=== PATIENT | male | born 1975 | race Caucasian/White ===

== ENCOUNTER 2017-04-04 12:14 | Emergency (ER) | payer BC ==
[~2017-04-04] VITALS: Ht 175.3 cm; Wt 76.5 kg
[2017-04-04 12:36] VITALS: Ht 175.3 cm; Wt 76.5 kg
[2017-04-04 13:44] LABS: BASOPHILS % (AUTO) 0.2 % (0-2); EOSINOPHILS # (AUTO) 0.2 T/MM3 (0-0.5); EOSINOPHILS % (AUTO) 1.6 % (0-4); HGB - HEMOGLOBIN 15.1 GM/DL (13.5-17.5); IMMATURE GRANULOCYTE # (AUTO) 0.03 T/MM3 (0.00-0.03); IMMATURE GRANULOCYTE % (AUTO) 0.2 % (0.0-0.5); LYMPHOCYTES # (AUTO) 3.1 T/MM3 (1-4.8); LYMPHOCYTES % (AUTO) 25.3 % (23-45); MEAN CORPUSCULAR HGB 28.8 UUG (26-34); MEAN CORPUSCULAR HGB CONC(MCHC 33.6 GM/DL (31-37); MEAN CORPUSCULAR VOLUME 85.7 UM3 (80-100); MEAN PLATELET VOLUME 11.6 UM3 (9.4-12.4); MONOCYTES # (AUTO) 1.1 T/MM3 (0-0.8); MONOCYTES % (AUTO) 8.8 % (0-9.0); NEUTROPHILS #(AUTO)-ABSOLUTE 7.8 T/MM3 (1.8-7.7); NEUTROPHILS % (AUTO) 63.9 % (33-66); RED BLOOD COUNT 5.25 M/MM3 (4.50-5.90); WBC - WHITE BLOOD COUNT 12.2 T/MM3 (4.5-11.0)
[2017-04-04] MEDS ORDERED: ACET-62 PO (13:49)
[2017-04-04] MEDS ORDERED: IBUP-1724 PO (13:49)
[2017-04-04] MEDS: NITROGLYCERIN 0.4 MG SUBLINGUAL TABLET SL PRN ×3 (13:57→14:14)
--- NOTE | 2017-04-04 13:57 | DI ---
Indication: ITS.REASON: jaw pain, arm pain PROCEDURE: CHEST 1 VIEW: Encounter: Initial Comparison: None FINDINGS: The lungs are clear. There is no abnormal airspace opacity, pleural effusion or pneumothorax identified. The heart size, pulmonary vasculature and mediastinum are within normal limits. No significant skeletal abnormality is seen. IMPRESSION: No acute cardiopulmonary abnormality. .
[2017-04-04 13:59] LABS: ANION GAP 14 MEQ/L (5-15); BUN/CREATININE RATIO 24 RATIO (6-26); CALCIUM 9.1 MG/DL (8.4-10.2); CHLORIDE 105 MEQ/L (98-107); CO2 - CARBON DIOXIDE 26 MEQ/L (22-30); CREATININE 0.8 MG/DL (0.8-1.5); GLOMERULAR FILTRATION RATE 107; GLUCOSE 102 MG/DL (75-110); POTASSIUM 4.1 MEQ/L (3.6-5); SODIUM 145 MEQ/L (134-144)
[2017-04-04] MEDS ORDERED: ASPIRIN 81 MG CHEWABLE TABLET PO ONE (14:15)
--- NOTE | 2017-04-04 14:33 | ERPDOC ---
Departure Disposition Decision Date: April 04, 2017 Disposition Decision Time: 15:14 (JONNY CHISHOLM APRN) Disposition: 01 DISCHARGED HOME, SELF-CARE Impression Impression (JONNY CHISHOLM APRN) Impression: Primary Impression: Jaw pain Additional Impression: Chest pain Chest pain type: intercostal pain Qualified Codes: R07.82 - Intercostal pain Severity: Moderate (JONNY CHISHOLM APRN) Condition: Stable Seen By: Mid-level only (JONNY CHISHOLM APRN) Referrals: CYNTHIA KRAFT APRN (Family) Patient Instructions: Chest Pain (ED) Problems/Meds/Labs Reviewed?: Yes Medications reviewed and manag: Yes (JONNY CHISHOLM APRN) Additional Instructions: I do want you to take the Pen VK as prescribed. Use the Naproxen as prescribed and the [place] as needed for pain. It is important that if this pain is not improving that you follow up with a primary care provider or return to ER for reevaluation. Come back to ER with any fever, increased shortness of breath, severe chest pain, or any other concerns. You may also follow up with Dr Pretty at [phone]. He is a housing property manager and can further evaluate your pain. Follow up care ordered?: Yes Mental Status: Alert, Oriented (JONNY CHISHOLM APRN) Scripts Penicillin V Potassium (Penicillin V Potassium) 500 Mg Tablet 1 TAB PO TID, #30 TAB 0 Refills Prov: VERNA CHISHOLMA Abhishek RICH 04/04/17 Hydrocodone/Acetaminophen ([place] 5-325 Tablet) 5-325 Tablet 1 TAB PO Q6H Y for PAIN, #12 TAB 0 Refills Prov: VERNA CHISHOLMA Abhishek RICH 04/04/17 Naproxen (Naprosyn) 500 Mg Tablet 1 TAB PO BID, #20 TAB 0 Refills Prov: VERNA CHISHOLMA Abhishek RICH 04/04/17 HPI - Chest Pain General Chief Complaint: Ear Pain/Injury Stated Complaint: LEFT EAR PAIN Time Seen by Provider: 13:08 Source: patient (with use of [email or web address] financial counselor service) Exam Limitations: no limitations (JONNY CHISHOLM APRN) Time Seen by Provider: 13:08 (ILEANA MCDONALD DO) HPI - Chest Pain Initial Comments He presents to Er today with initial c/o left jaw pain. He states that this has been going on for the last 3 days. He also has been having chest pain and left arm pain for the last 3 days as well. He has never had pain like this in the past at all. He denies any fever or chills. Has had some mild nausea and mild SOA. After further questioning the SOA is mostly with taking a deep breath. Has not taken anything for the pain and nothing seems to make it better. The chest pain comes and goes but the jaw pain is present all the time. Denies any facial injury or trauma. He does have increased pain with opening his jaw. Denies any sore throat or ear pain. Occurred At: home Onset/Timing: Gradual Duration: other (Over the last 3 days) Activities at Onset/Context: none Location: substernal 1 - area of pain Quality: sharp Modifying Factors: IMPROVES WITH: other (worse with taking a deep breath) Associated Symptoms: nausea/vomiting (nausea), shortness of breath (mild), DENIES: abdominal pain, back pain, diaphoresis, dizziness, edema, fast HR, fatigue, fever/chills, headache, heartburn, irregular HR, rash, slow HR, swelling/lump in chest, syncope, weakness Chest Pain Radiation: jaw, arms (left arm) Nitro Today/Relief: 0.4 mg x 2 (given in ER) Aspirin Treatment Today: 81 mg x 4 Prior Chest Pain/Cardiac Luis Felipe: no prior chest pain, no prior cardiac workup Hx of Similar Symptoms: No (JONALD,JONNY N COMMUNICATION EQUIPMENT REPAIRER) Allergies: Coded Allergies: No Known Allergies (Unverified , 04/04/17) Past History Past Medical History Pt denies signifigant PMH (PHAN,JONNY N COMMUNICATION EQUIPMENT REPAIRER) Surgical History Cardiac: other (AMI-brother at age 50) (PHAN,JONNY N COMMUNICATION EQUIPMENT REPAIRER) Social History Smoking Status: Never smoker Substance Use Type: does not use Alcohol Intake: none (NOLD,JONNY N COMMUNICATION EQUIPMENT REPAIRER) Review of Systems Constitutional Constitutional: DENIES: chills, dizziness, fatigue, fever, weakness (NOLD, JONNY N COMMUNICATION EQUIPMENT REPAIRER) Eyes Vision: DENIES: blurring, double vision (NOLD,JONNY N COMMUNICATION EQUIPMENT REPAIRER) ENMT Ears: DENIES: drainage, pain Sinuses: DENIES: congestion, rhinorrhea Mouth/Throat: DENIES: change in voice, hoarsness, painful swallowing, scratchy throat, sore throat Teeth: DENIES: chipped/cracked tooth, missing teeth, pain Jaw: limited opening of mouth (but is able to open mouth, just has pain), pain (left jaw), DENIES: clicking, popping, previous dislocation (NOLD,JONNY N COMMUNICATION EQUIPMENT REPAIRER) Cardiovascular Cardiac: DENIES: chest pain, orthopnea Rhythm/Rate: DENIES: irregular beat, palpitations (NOLD,JONNY N COMMUNICATION EQUIPMENT REPAIRER) Pulmonary Respiratory: DENIES: cough, dyspnea, sputum (NOLD,JONNY N COMMUNICATION EQUIPMENT REPAIRER) GI Upper Abdomen: DENIES: nausea, pain, vomiting Lower Abdomen: DENIES: constipation, diarrhea, pain (NOLD,JONNY N COMMUNICATION EQUIPMENT REPAIRER) Integumentary Skin: DENIES: rash (NOLD,JONNY N COMMUNICATION EQUIPMENT REPAIRER) Neurological General: DENIES: headache, numbness, tingling, weakness (NOLD,JONNY N COMMUNICATION EQUIPMENT REPAIRER) Physical Exam General General Nourishment: well nourished, well developed, appears stated age, no acute distress, adult General Body Habitus: well groomed (NOLD,JONNY N COMMUNICATION EQUIPMENT REPAIRER) Vitals and Pain First Documented Vital Signs Date Time Temp Pulse Resp B/P Pulse Ox O2 Delivery O2 Flow Rate FiO2 04/04/17 12:36 98.9 72 14 139/81 98 Room Air (ILEANA MCDONALD DO) Vitals and Pain Weight: Kilograms: 76.500 Height (feet): 5 Height (inches): 9.00 Triage Pain Scale: (NOLD,JONNY N COMMUNICATION EQUIPMENT REPAIRER) RN VS reviewed by Provider: Yes (NOHANNAH,JONNY N COMMUNICATION EQUIPMENT REPAIRER) Normal Exams: Neck: Full range of motion, without adenopathy, JVD, bruits or thyromegaly Chest/Resp: Clear all [place], with good airflow, and symmetry bilaterally CV: Regular rate and rhythm, without murmur or gallop, Pulses 2+ all extremities, capillary refill, <2 seconds all ext., no pedal edema noted Abdomen: Bowel sounds positive, soft, non-tender, non-distended, no hepatosplenomegaly, masses or bruits noted Lymphatic: No lymphadenopathy, or lymphedema noted Musculoskeletal: No tenderness, or deformity noted, good range of motion, all extremities Integumentary: No rashes, hives, or bruising noted Neurologic: Patient is alert, and oriented Psychiatric: Patient exhibits, appropriate attention, emotion and affect (JONNY CHISHOLM APRN) ENMT (brief) ENMT Brief: FOUND: TM clear, TM good light reflex, ear canals clear, mucosa moist, normal dentition, normal tonsils, other (He does have pain with opening of mouth but is able to fully open it. No swelling or erythema of the gums noted. No dental caries or tooth fractures noted. TTP along the angle of the jaw and the anterior neck. ), NOT FOUND: lesions, nasal erythema, nasal exudate , nasal swelling, petechiae, pharnyx erythema, tonsillar deviation (JONNY CHISHOLM N COMMUNICATION EQUIPMENT REPAIRER) Neck (brief) Neck: FOUND: adenopathy (left anterior cervical adenopathy with mild TTP), tenderness (in left anterior neck and jaw), NOT FOUND: nuchal rigidity, thyromegaly, tracheal deviation (JONNY CHISHOLM N COMMUNICATION EQUIPMENT REPAIRER) Differential Diagnoses Considering: Acute ME, Angina, Costochondritis, Esophageal Spasm, GERD, Other ( dental pain, pharyngitis. ) (JONNY CHISHOLM N COMMUNICATION EQUIPMENT REPAIRER) Progress Results/Orders Orders Procedure Category Date Status Time EKG EKG 04/04/17 Taken Cbc W/Auto LAB 04/04/17 Complete Diff-Reflex Manual Bmp - Basic Metabolic LAB 04/04/17 Complete Panel Troponin I W LAB 04/04/17 Complete Hemolysis Index Chest 1 View RAD 04/04/17 Resulted Iv Lock (Ed Only) EDM 04/04/17 Transmitted 14:01 Aspirin (Asa) PHA 04/04/17 Complete 14:15 Nitroglycerin PHA 04/04/17 Complete (Nitrostat) 14:15 (ILEANA MCDONALD DO) Lab Results Laboratory Tests Test 04/04/17 13:38 White Blood Count 12.2T/MM3 Red Blood Count 5.25M/MM3 Hemoglobin 15.1GM/DL Hematocrit 45.0% Mean Corpuscular Volume 85.7UM3 Mean Corpuscular Hemoglobin 28.8UUG Mean Corpuscular Hemoglobin Concent 33.6GM/DL RDW Standard Deviation 39.8FL Platelet Count 228T/MM3 Mean Platelet Volume 11.6UM3 Immature Granulocyte % (Auto) 0.2% Neutrophils (%) (Auto) 63.9% Lymphocytes (%) (Auto) 25.3% Monocytes (%) (Auto) 8.8% Eosinophils (%) (Auto) 1.6% Basophils (%) (Auto) 0.2% Absolute Immature Granulocyte (auto 0.03T/MM3 Absolute Neutrophils (auto) 7.8T/MM3 Absolute Lymphocytes (auto) 3.1T/MM3 Absolute Monocytes (auto) 1.1T/MM3 Absolute Eosinophils (auto) 0.2T/MM3 Absolute Basophils (auto) 0.0T/MM3 Turbidity < 20 Sodium Level 145MEQ/L Potassium Level 4.1MEQ/L Chloride Level 105MEQ/L Carbon Dioxide Level 26MEQ/L Anion Gap 14MEQ/L Blood Urea Nitrogen 19.0MG/DL Creatinine 0.8MG/DL Glomerular Filtration Rate Calc 107 BUN/Creatinine Ratio 24RATIO Glucose Level 102MG/DL Calculated Osmolality 281MOSM/KG Calcium Level 9.1MG/DL Icterus Index < 2 Troponin I < 0.012ng/ml Chemistry Specimen Hemolysis < 15 (ILEANA MCDONALD DO) Medications Current ED Medications Aspirin (ASA) 324 mg O ONCE PO Last administered on 04/04/17 13:55; Start at 14:15; Stop 04/04/17 at 14:16; Status DC Nitroglycerin (Nitrostat) 0.4 mg Q5MIN PRN SL CHEST PAIN Last administered on 14:14; Start 04/04/17 at 14:15; Stop 04/04/17 at 14:15; Status DC (ILEANA MCDONALD DO) Progress Progress WBC is 12.2 today. BMP and troponin are normal. Chest xray is normal. He did get Nitro x2 while in Er and this did give him some relief of pain down to a 4/ 10. I did ask him again and this pain has been going on for the last 3 days. He does report that the chest and the jaw pain both started on the same day. Did discuss HPI, family history, labs, and exam with Nicky Garibay APRN. Given the length of time of the pain, negative labs and EKG, and the positive findings of pain in the jaw with opening and closing and palpation will treat as more of a possible dental issue. He does report that he has been having trouble eating due to the pain as well. I will give him some Pen VK, Naproxen, and [place] today take today. Did go over with him the need for follow up with PCP or Dr Pretty if this is not improving. He will return to Er over the weekend with any worsening symptoms as well. (JONNY CHISHOLM APRN) Xray Xray : Reason for Exam: chest pain Xray: CXR PA/Lat Interpretation: Normal (JONNY CHISHOLM APRN) JONNY CHISHOLM APRN April 04, 2017 14:33 ILEANA MCDONALD DO April 04, 2017 15:54
[2017-04-04] MEDS ORDERED: NAPR500T PO (15:31)
[2017-04-04] MEDS ORDERED: HYDR-4246 PO (15:31)
[2017-04-04] MEDS ORDERED: PENI500T2 PO (15:31)
[2017-04-04 15:45] VITALS: BP 112/79; PULSE 68; RESP 14; TEMP 98.9; O2SAT 97
== END 2017-04-04 15:45 | disposition home or self-care (01) ==
LOC: ED 12:14
DX: R68.84 Jaw pain (principal); R07.82 Intercostal pain; H92.02 Otalgia, left ear
CPT/HCPCS: 36000; 80048; 84484; 85025; 93005